=== PATIENT | male | born 1970 | race Caucasian/White ===

== ENCOUNTER 2020-08-29 14:12 | Emergency (ER) | payer MEDICAID, SELFPAY ==
[~2020-08-29] VITALS: Ht 175.3 cm; Wt 54.0 kg
[2020-08-29 14:12] VITALS: BP_SYST 106
[~2020-08-29 14:12] MED LIST: BACL20 PO; BICT1TAB PO; DOCU250C75 PO; GABA800T PO; MIRT15TA7 PO; ONDA4TAB5 PO; PANT20TA2 PO; PROP10TA10 PO; TRAM50TA2 PO
[2020-08-29] MEDS ORDERED: fentaNYL CITRATE/PF 100 MCG/2 ML AMP IVP ONE (14:30)
[2020-08-29 14:51] LABS: BASOPHILS # (AUTO) 0.1 K/uL (0.0-0.2); BASOPHILS % (AUTO) 1.1 % (0.0-2.0); EOSINOPHILS # (AUTO) 0.1 K/uL (0.0-0.4); EOSINOPHILS % (AUTO) 1.8 % (0.0-4.0); HEMOGLOBIN 9.3 g/dL (14.0-18.0); MEAN CORPUSCULAR HEMOGLOBIN 30 pg (27-31); MEAN CORPUSCULAR HGB CONC 34 % (32-36); MEAN CORPUSCULAR VOLUME 89 fL (79.0-98.0); MONOCYTES # (AUTO) 0.4 K/uL (0.0-1.0); MONOCYTES % (AUTO) 6.5 % (1.7-9.3); NEUTROPHILS # (AUTO) 4.5 K/uL (1.8-7.7); NEUTROPHILS % (AUTO) 74.6 % (40.0-70.0); PLATELET COUNT (AUTO) 196 K/uL (130-430); RED BLOOD CELL COUNT(AUTO) 3.08 MIL/uL (4.2-6.2); RED CELL DISTRIBUTION WIDTH 24.2 % (9.0-15.0); WHITE BLOOD COUNT (AUTO) 6.1 K/uL (4.8-10.8)
[2020-08-29 14:54] LABS: HEMATOCRIT 27.4 % (36-54)
[2020-08-29] MEDS ORDERED: cephALEXin 500 MG CAPSULE PO ONE (15:00)
[2020-08-29 15:01] LABS: CREATININE 1.39 mg/dL (0.55-1.30); POTASSIUM 3.3 mmol/L (3.5-5.1)
[2020-08-29] MEDS ORDERED: CEPH500C2 PO ×3 (15:41→15:43)
[2020-08-29] MEDS ORDERED: OXYC-128 PO (15:41)
[2020-08-29] MEDS ORDERED: OXYIR5 PO (15:43)
[2020-08-29 15:57] VITALS: BP_SYST 105
== END 2020-08-29 16:01 | disposition home or self-care (01) ==
LOC: SED 14:12
DX: S90.821A Blister (nonthermal), right foot, initial encounter (principal); S90.822A Blister (nonthermal), left foot, initial encounter; Z88.8 Allergy status to other drugs, medicaments and biological substances; Z79.899 Other long term (current) drug therapy; X58.XXXA Exposure to other specified factors, initial encounter; Y93.89 Activity, other specified; Y92.89 Other specified places as the place of occurrence of the external cause; Y99.8 Other external cause status
CPT/HCPCS: 36415; 80048; 85025; 96374; 99283; J3010

== ENCOUNTER 2020-09-08 23:15 | Inpatient (IN) | payer MEDICAID, SELFPAY ==
[~2020-09-08] VITALS: Ht 175.3 cm; Wt 51.3 kg
[~2020-09-08 23:15] MED LIST changes: +CEPH500C2 PO; +OXYIR5 PO
[2020-09-08 23:20] VITALS: BP_SYST 132
[2020-09-08] MEDS ORDERED: ONDANSETRON HCL 4 MG/2 ML VIAL IVP ONE (23:45)
[2020-09-08] MEDS ORDERED: ONDANSETRON HCL 4 MG/2 ML VIAL ONE (23:50)
[2020-09-09] MEDS ORDERED: NACL 0.9% 1,000 ML IV ONE
[2020-09-09] MEDS ORDERED: KETOROLAC TROMETHAMINE 30 MG VIAL IVP ONE
[2020-09-09 00:11] LABS: CALCIUM 8.9 mg/dL (8.4-11.0); CREATININE 1.5 mg/dL (0.55-1.30)
[2020-09-09 00:12] LABS: BASOPHILS % (AUTO) 0.3 % (0.0-2.0); EOSINOPHILS # (AUTO) 0.1 K/uL (0.0-0.4); EOSINOPHILS % (AUTO) 0.9 % (0.0-4.0); HEMATOCRIT 31.8 % (36-54); HEMOGLOBIN 10.6 g/dL (14.0-18.0); LYMPHOCYTES # (AUTO) 0.9 K/uL (1.0-5.5); LYMPHOCYTES % (AUTO) 7.4 % (20.5-51.5); MEAN CORPUSCULAR HEMOGLOBIN 30 pg (27-31); MEAN CORPUSCULAR HGB CONC 33 % (32-36); MEAN CORPUSCULAR VOLUME 90 fL (79.0-98.0); MONOCYTES # (AUTO) 0.6 K/uL (0.0-1.0); MONOCYTES % (AUTO) 4.7 % (1.7-9.3); NEUTROPHILS # (AUTO) 10.5 K/uL (1.8-7.7); NEUTROPHILS % (AUTO) 86.7 % (40.0-70.0); PLATELET COUNT (AUTO) 152 K/uL (130-430); RED BLOOD CELL COUNT(AUTO) 3.52 MIL/uL (4.2-6.2); RED CELL DISTRIBUTION WIDTH 22.7 % (9.0-15.0); WHITE BLOOD COUNT (AUTO) 12.1 K/uL (4.8-10.8)
[2020-09-09 00:17] LABS: ALBUMIN 3.3 g/dL (3.4-4.8); TOTAL BILIRUBIN 2.5 mg/dL (0.0-1.0)
[2020-09-09 00:21] LABS: INR 1.2 (0.80-1.20); PROTHROMBIN TIME 12.3 SECS (9.5-12.5)
[2020-09-09] MEDS ORDERED: PIPERACILLIN/TAZO 3.375 GM in NS 50 ML IV ONE (00:45)
[2020-09-09] MEDS ORDERED: PIPERACILLIN/TAZOBACTAM 3.375 GM/VIAL (ZOSYN) IV ONE (00:55)
[2020-09-09] MEDS ORDERED: MORPHINE 4 MG INJ. 4 MG/ML VIAL IVP ONE (01:00)
[2020-09-09] MEDS ORDERED: MORPHINE 4 MG INJ. 4 MG/ML VIAL IVP PRN (01:00)
[2020-09-09] MEDS ORDERED: ONDANSETRON HCL 4 MG/2 ML VIAL IVP PRN (01:00)
[2020-09-09] MEDS ORDERED: POTASSIUM CHLORIDE 20 MEQ TAB.PRT.SR PO ONE (01:30)
[2020-09-09] MEDS ORDERED: IOHEXOL 350 mgI/mL, 150 ML INFUS..BTL IV ONE (02:04)
[2020-09-09] MEDS ORDERED: DIPHENHYDRAMINE INJ 50 MG/ML VIAL IVP ONE (02:15)
[2020-09-09] MEDS ORDERED: DEXAMETHASONE SOD PHOSPHATE 4 MG/ML VIAL IVP ONE (02:15)
[2020-09-09] MEDS ORDERED: VITD2000 PO (02:32)
[2020-09-09] MEDS ORDERED: SULF1TAB48 PO (02:32)
[2020-09-09] MEDS ORDERED: LASI20 IVP (02:32)
[2020-09-09] MEDS ORDERED: LACT10SO6 PO (02:32)
[2020-09-09] MEDS ORDERED: CYM30 PO (02:32)
[2020-09-09] MEDS: NACL 0.9% 1,000 ML IV SCH ×2 (04:37→11:00)
[2020-09-09 04:54] VITALS: BP_SYST 120
[2020-09-09 05:03] LABS: BILIRUBIN,URINE NEGATIVE (NEGATIVE); BLOOD, URINE 3+ (NEGATIVE); CLARITY/URINE SL CLOUDY (CLEAR); COLOR,URINE YELLOW (YELLOW); GLUCOSE,URINE NEGATIVE (NEGATIVE); KETONES,URINE NEGATIVE (NEGATIVE); LEUKOCYTE ESTERASE ,URINE NEGATIVE (NEGATIVE); NITRITE, URINE NEGATIVE (NEGATIVE); PH,URINE 7.5 (5.0-8.0); PROTEIN URINE TRACE (NEGATIVE); UROBILINOGEN,URINE 0.2 (0.2-1.0)
[2020-09-09] MEDS ORDERED: POTASSIUM CHLORIDE 20 MEQ in NS 250 ML IV ONE (05:15)
[2020-09-09] MEDS ORDERED: KCL 20 mEq in 100 mL (PREMIX) 100 ML IV ONE ×2 (05:30→05:38)
[2020-09-09 05:32] LABS: BACTERIA,URINE FEW /HPF (None Seen); WBC,URINE 0-3 /HPF (0-3)
[2020-09-09 08:00] VITALS: BP_SYST 110
[2020-09-09] MEDS ORDERED: ACETAMINOPHEN 500 MG TABLET PO PRN (08:00)
[2020-09-09] MEDS ORDERED: HYDROcodone/ACETAMIN 7.5-325 MG TAB PO PRN (08:00)
[2020-09-09] MEDS ORDERED: DOCUSATE SODIUM 100 MG/10 ML UDC PO PRN (08:00)
[2020-09-09 09:27] LABS: FREE T4 (FREE THYROXINE) 1.1 ng/dl (0.8-1.5); THYROID STIMULATING HORMONE 4.9 uIu/mL (0.36-3.74)
[2020-09-09] MEDS: ONDANSETRON HCL 4 MG/2 ML VIAL IVP PRN (11:48)
[2020-09-09] MEDS: MORPHINE 2 MG/ML INJ. SYRINGE IVP PRN ×2 (11:49→17:00)
[2020-09-09 12:07] LABS: CHOLESTEROL 80 mg/dL (<200); HDL CHOLESTEROL 24 mg/dL (>45); LDL CHOLESTEROL 42 mg/dL (<100); TRIGLYCERIDES 57 mg/dL (30-150)
[2020-09-09 12:49] VITALS: BP_SYST 116
[2020-09-09] MEDS: LR 1,000 ML IV SCH (14:39)
[2020-09-09 17:44] VITALS: BP_SYST 107
[2020-09-09 20:00] VITALS: BP_SYST 134
[2020-09-09 23:07] LABS: BARBITURATE, URINE NEGATIVE (NEG <=200); BENZODIAZEPINE, URINE NEGATIVE (NEG <=150); CANNABINOID, URINE POSITIVE (NEG <=50); COCAINE, URINE NEGATIVE (NEG <=150); METHAMPHETAMINES SCREEN,URINE NEGATIVE (NEG <=500); PHENCYCLIDINE SCREEN,URINE NEGATIVE (NEG <=25); URINE AMPHETAMINE NEGATIVE (NEG <=500); URINE METHADONE NEGATIVE (NEG <=200)
[2020-09-09 23:08] LABS: OPIATE, URINE POSITIVE (NEG <=100); UR TRICYCLIC ANTIDEPRESSANTS NEGATIVE (NEG <=300); URINE OXYCODONE SCREEN NEGATIVE (NEG <=100); URINE PROPOXYPHENE SCREEN NEGATIVE (NEG <=300)
[2020-09-10] VITALS: BP_SYST 128
[2020-09-10] MEDS: LR 1,000 ML IV SCH ×2 (00:05→08:45)
[2020-09-10] MEDS: ONDANSETRON HCL 4 MG/2 ML VIAL IVP PRN ×3 (00:28→22:46)
[2020-09-10] MEDS: MORPHINE 2 MG/ML INJ. SYRINGE IVP PRN ×5 (00:36→22:53)
[2020-09-10 07:21] LABS: CREATININE 1.38 mg/dL (0.55-1.30); POTASSIUM 3.3 mmol/L (3.5-5.1)
[2020-09-10 07:48] LABS: BASOPHILS % (AUTO) 0.3 % (0.0-2.0); EOSINOPHILS # (AUTO) 0.1 K/uL (0.0-0.4); EOSINOPHILS % (AUTO) 1.5 % (0.0-4.0); LYMPHOCYTES # (AUTO) 0.9 K/uL (1.0-5.5); LYMPHOCYTES % (AUTO) 11.8 % (20.5-51.5); MEAN CORPUSCULAR HEMOGLOBIN 31 pg (27-31); MEAN CORPUSCULAR HGB CONC 33 % (32-36); MEAN CORPUSCULAR VOLUME 91 fL (79.0-98.0); MONOCYTES # (AUTO) 0.8 K/uL (0.0-1.0); MONOCYTES % (AUTO) 10.4 % (1.7-9.3); NEUTROPHILS # (AUTO) 5.8 K/uL (1.8-7.7); PLATELET COUNT (AUTO) 115 K/uL (130-430); RED CELL DISTRIBUTION WIDTH 23.5 % (9.0-15.0); WHITE BLOOD COUNT (AUTO) 7.6 K/uL (4.8-10.8)
[2020-09-10 07:58] LABS: CALCIUM 6.9 mg/dL (8.4-11.0)
[2020-09-10 08:00] VITALS: BP_SYST 117
[2020-09-10 08:51] LABS: HEMATOCRIT 19.2 % (36-54); HEMOGLOBIN 6.4 g/dL (14.0-18.0)
[2020-09-10] MEDS ORDERED: POTASSIUM CHLORIDE 20 MEQ TAB.PRT.SR PO PRN (09:00)
[2020-09-10 11:22] VITALS: BP_SYST 122
[2020-09-10] MEDS ORDERED: fentaNYL CITRATE/PF 100 MCG/2 ML AMP ONE (13:49)
[2020-09-10] MEDS ORDERED: BENZOCAINE 20% 0.5mL UD SPRAY MM ONE (13:49)
[2020-09-10] MEDS ORDERED: MIDAZOLAM HCL 5 MG/5 ML VIAL ONE (13:50)
[2020-09-10] MEDS ORDERED: SIMETHICONE 40 MG/0.6 ML ML ONE (14:26)
[2020-09-10] MEDS ORDERED: MEPERIDINE 100 MG INJ. 100 MG/ML VIAL ONE (14:40)
[2020-09-10 16:43] VITALS: BP_SYST 127
[2020-09-10 20:00] VITALS: BP_SYST 125
[2020-09-11] VITALS: BP_SYST 132
[2020-09-11] MEDS: LR 1,000 ML IV SCH ×3 (00:56→15:44)
[2020-09-11] MEDS: MORPHINE 2 MG/ML INJ. SYRINGE IVP PRN ×4 (03:33→21:32)
[2020-09-11 06:40] LABS: BASOPHILS % (AUTO) 0.8 % (0.0-2.0); EOSINOPHILS # (AUTO) 0.1 K/uL (0.0-0.4); EOSINOPHILS % (AUTO) 2.4 % (0.0-4.0); HEMOGLOBIN 7.4 g/dL (14.0-18.0); LYMPHOCYTES % (AUTO) 17.5 % (20.5-51.5); MEAN CORPUSCULAR HEMOGLOBIN 31 pg (27-31); MEAN CORPUSCULAR HGB CONC 34 % (32-36); MEAN CORPUSCULAR VOLUME 92 fL (79.0-98.0); MONOCYTES # (AUTO) 0.6 K/uL (0.0-1.0); MONOCYTES % (AUTO) 9.8 % (1.7-9.3); NEUTROPHILS % (AUTO) 69.5 % (40.0-70.0); PLATELET COUNT (AUTO) 111 K/uL (130-430); RED BLOOD CELL COUNT(AUTO) 2.39 MIL/uL (4.2-6.2); RED CELL DISTRIBUTION WIDTH 21.3 % (9.0-15.0); WHITE BLOOD COUNT (AUTO) 5.8 K/uL (4.8-10.8)
[2020-09-11 07:13] LABS: ALBUMIN 2.1 g/dL (3.4-4.8); CALCIUM 7.2 mg/dL (8.4-11.0); CREATININE 1.19 mg/dL (0.55-1.30); POTASSIUM 3.1 mmol/L (3.5-5.1); TOTAL BILIRUBIN 1.6 mg/dL (0.0-1.0)
[2020-09-11 07:22] LABS: HEMATOCRIT 21.9 % (36-54)
[2020-09-11 07:35] VITALS: BP_SYST 124
[2020-09-11 12:05] VITALS: BP_SYST 123
[2020-09-11] MEDS ORDERED: BALSAM PERU/CASTOR OIL 60 GM OINT...G. TP SCH (12:30)
[2020-09-11] MEDS: ONDANSETRON HCL 4 MG/2 ML VIAL IVP PRN ×2 (15:41→21:32)
[2020-09-11 16:05] VITALS: BP_SYST 136
[2020-09-12 00:38] VITALS: BP_SYST 132
[2020-09-12] MEDS: ONDANSETRON HCL 4 MG/2 ML VIAL IVP PRN ×2 (02:42→22:01)
[2020-09-12] MEDS: MORPHINE 2 MG/ML INJ. SYRINGE IVP PRN ×4 (02:43→22:04)
[2020-09-12] MEDS: LR 1,000 ML IV SCH ×3 (02:44→22:05)
[2020-09-12 07:02] LABS: BASOPHILS % (AUTO) 0.6 % (0.0-2.0); EOSINOPHILS # (AUTO) 0.2 K/uL (0.0-0.4); EOSINOPHILS % (AUTO) 2.9 % (0.0-4.0); HEMATOCRIT 22.7 % (36-54); HEMOGLOBIN 7.6 g/dL (14.0-18.0); LYMPHOCYTES # (AUTO) 1.2 K/uL (1.0-5.5); LYMPHOCYTES % (AUTO) 18.6 % (20.5-51.5); MEAN CORPUSCULAR HEMOGLOBIN 31 pg (27-31); MEAN CORPUSCULAR HGB CONC 34 % (32-36); MEAN CORPUSCULAR VOLUME 92 fL (79.0-98.0); MONOCYTES # (AUTO) 0.7 K/uL (0.0-1.0); MONOCYTES % (AUTO) 11.1 % (1.7-9.3); NEUTROPHILS # (AUTO) 4.1 K/uL (1.8-7.7); NEUTROPHILS % (AUTO) 66.8 % (40.0-70.0); PLATELET COUNT (AUTO) 133 K/uL (130-430); RED BLOOD CELL COUNT(AUTO) 2.47 MIL/uL (4.2-6.2); RED CELL DISTRIBUTION WIDTH 21.7 % (9.0-15.0); WHITE BLOOD COUNT (AUTO) 6.2 K/uL (4.8-10.8)
[2020-09-12 07:24] LABS: CALCIUM 7.3 mg/dL (8.4-11.0); CREATININE 1.21 mg/dL (0.55-1.30); POTASSIUM 3.7 mmol/L (3.5-5.1)
[2020-09-12 12:01] VITALS: BP_SYST 122
[2020-09-12] MEDS ORDERED: METO-290 PO (15:44)
[2020-09-12 16:00] VITALS: BP_SYST 131
[2020-09-12 21:55] VITALS: BP_SYST 134
[2020-09-13 00:05] VITALS: BP_SYST 136
[2020-09-13] MEDS: MORPHINE 2 MG/ML INJ. SYRINGE IVP PRN ×3 (02:43→17:07)
[2020-09-13 07:09] LABS: CALCIUM 7.3 mg/dL (8.4-11.0); CREATININE 1.14 mg/dL (0.55-1.30); POTASSIUM 3.8 mmol/L (3.5-5.1)
[2020-09-13 08:00] VITALS: BP_SYST 118
[2020-09-13 08:17] LABS: BASOPHILS % (AUTO) 0.7 % (0.0-2.0); EOSINOPHILS # (AUTO) 0.2 K/uL (0.0-0.4); EOSINOPHILS % (AUTO) 3.1 % (0.0-4.0); HEMOGLOBIN 7.2 g/dL (14.0-18.0); LYMPHOCYTES # (AUTO) 1.1 K/uL (1.0-5.5); MEAN CORPUSCULAR HEMOGLOBIN 31 pg (27-31); MEAN CORPUSCULAR HGB CONC 34 % (32-36); MEAN CORPUSCULAR VOLUME 92 fL (79.0-98.0); MONOCYTES # (AUTO) 0.6 K/uL (0.0-1.0); MONOCYTES % (AUTO) 10.8 % (1.7-9.3); NEUTROPHILS # (AUTO) 3.9 K/uL (1.8-7.7); NEUTROPHILS % (AUTO) 66.4 % (40.0-70.0); PLATELET COUNT (AUTO) 145 K/uL (130-430); RED BLOOD CELL COUNT(AUTO) 2.31 MIL/uL (4.2-6.2); RED CELL DISTRIBUTION WIDTH 21.6 % (9.0-15.0); WHITE BLOOD COUNT (AUTO) 5.9 K/uL (4.8-10.8)
[2020-09-13] MEDS ORDERED: FUROSEMIDE 40 MG/4 ML VIAL IVP ONE (08:45)
[2020-09-13 09:05] LABS: HEMATOCRIT 21.3 % (36-54)
[2020-09-13 11:34] VITALS: BP_SYST 110
[2020-09-13 15:24] VITALS: BP_SYST 104
[2020-09-13 19:56] VITALS: BP_SYST 112
[2020-09-13 20:00] VITALS: BP_SYST 112
== END 2020-09-13 21:08 | disposition home or self-care (01) | DRG 282 ==
LOC: SED 23:15 → SMU 09-09 01:14
PROVIDERS: ADMIT Emergency Medicine; ATTEND Emergency Medicine
PROC: 0DB98ZX Excision of Duodenum, Via Natural or Artificial Opening Endoscopic, Diagnostic (ICD-10-PCS; 2020-09-10)
PROC: 0DB68ZX Excision of Stomach, Via Natural or Artificial Opening Endoscopic, Diagnostic (ICD-10-PCS; 2020-09-10)
PROC: 0DB78ZX Excision of Stomach, Pylorus, Via Natural or Artificial Opening Endoscopic, Diagnostic (ICD-10-PCS; principal; 2020-09-10 15:11)
PROC: 0W9G3ZZ Drainage of Peritoneal Cavity, Percutaneous Approach (ICD-10-PCS; 2020-09-13)
DX: K85.90 Acute pancreatitis without necrosis or infection, unspecified (principal); N17.0 Acute kidney failure with tubular necrosis; E44.0 Moderate protein-calorie malnutrition; G62.9 Polyneuropathy, unspecified; E83.51 Hypocalcemia; R18.8 Other ascites; K74.60 Unspecified cirrhosis of liver; R31.29 Other microscopic hematuria; E86.0 Dehydration; E87.1 Hypo-osmolality and hyponatremia; E87.6 Hypokalemia; K20.90 Esophagitis, unspecified without bleeding; K29.70 Gastritis, unspecified, without bleeding; K31.89 Other diseases of stomach and duodenum; Z20.822 Contact with and (suspected) exposure to COVID-19; Z68.1 Body mass index [BMI] 19.9 or less, adult; Z91.041 Radiographic dye allergy status; Z88.2 Allergy status to sulfonamides; Z91.09 Other allergy status, other than to drugs and biological substances; Z90.49 Acquired absence of other specified parts of digestive tract; Z79.899 Other long term (current) drug therapy
CPT/HCPCS: 36415; 36430; 43239; 49083; 72191; 74175; 76376; 76700-TC; 80048; 80053; 80061; 80307; 81000; 82150; 82272; 83036; 83605; 83690; 84439; 84443; 85025; 85610-TC; 86886; 86900; 86901; 86920; 87040-TC; 87081; 88305; 88312; 88313; 96361; 96365; 96374; 96375; 99291; C1729; G0482; J1100; J1200; J1885; J1940; J2175; J2250; J2270; J2405; J2543; J3010; J3480; P9021; Q9967